=== PATIENT | female | born 1945 | race Caucasian/White ===

== ENCOUNTER 2017-02-24 15:44 | Emergency (ER) | payer MEDICARE, BC ==
[2017-02-24 16:20] LABS: #Basophils 0.1 thou/uL (0.0-0.2); #Eosinphils 0.1 thou/uL (0.0-0.7); #Lymphocytes 1.9 thou/uL (1.20-3.40); #Monocytes 0.4 thou/uL (0.11-0.59); #Neutrophils 3.7 thou/uL (1.40-6.50); %Basophils 1.1 % (0.0-1.0); %Eosinophils 1.5 % (0.0-10.0); %Monocytes 6.5 % (0.0-10.0); %Neutrophils 59.9 % (42.0-75.0); Hemoglobin 11.8 g/dL (12.0-16.0); Mean Corpuscular HGB CONC 31.3 g/dL (32.0-36.0); Mean Corpuscular Hemoglobin 31.5 pg (27.0-31.0); Mean Platelet Volume 8.7 fL (7.4-10.4); Platelet Count 173 thou/uL (130-400); Red Blood Cell (RBC) Count 3.75 mill/uL (4.20-5.40); White Blood Cell (WBC) Count 6.2 thou/uL (4.8-10.8)
[2017-02-24 16:26] LABS: INR-International Normal Ratio 0.9; PTT 23.2 SEC (22.9-36.1); Prothrombin Time 12.4 SEC (12.0-14.7)
[2017-02-24 16:37] LABS: ALT (SGPT) 35 U/L (0-55); AST (SGOT) 37 U/L (5-34); Albumin 3.7 g/dL (3.4-4.8); Alkaline Phosphatase 105 U/L (40-150); Anion Gap 13 mmol/L (10-20); BUN (Urea Nitrogen) 14 mg/dL (9.8-20.1); Bilirubin, Total 0.3 mg/dL (0.2-1.2); Calc. Creatinine Clearance 0 mL/min (70-130); Calcium 8.5 mg/dL (7.8-10.44); Carbon Dioxide 26 mmol/L (23-31); Chloride 107 mmol/L (98-107); Estimated GFR-MDRD 62; Glucose 97 mg/dL (83-110); Potassium 4.3 mmol/L (3.5-5.1); Protein, Total 6.7 g/dL (5.8-8.1); Sodium 142 mmol/L (136-145)
[2017-02-24 16:39] LABS: CKMB 1.5 ng/mL (0-6.6); Troponin I Less than 0.010 ng/mL (< 0.028)
--- NOTE | 2017-02-24 22:26 | RAD ---
LEFT RIBS WITH PA CHEST 02/24/17 The chest film shows a normal sized heart and clear lungs. No infiltrate or effusion was seen. There is no sign of pneumothorax. The mediastinum was normal in appearance. Rib films were done. One of the views suggests there may be a hairline fracture of the left 7th rib anterolaterally. All other views were unremarkable. IMPRESSION: Suspicious for hairline fracture of the left 7th rib. POS: HOME
== END 2017-02-24 18:32 | disposition home or self-care (01) ==
LOC: BURERS 15:44
DX: R07.82 Intercostal pain (principal); E03.9 Hypothyroidism, unspecified; K57.90 Diverticulosis of intestine, part unspecified, without perforation or abscess without bleeding; F41.9 Anxiety disorder, unspecified; F32.9 Major depressive disorder, single episode, unspecified; F43.10 Post-traumatic stress disorder, unspecified
CPT/HCPCS: 80053; 82553; 83880; 84484; 85025; 85610; 85730; 93005; 94760

== ENCOUNTER 2017-05-09 10:36 | Outpatient (CLI) | payer MEDICARE, BC ==
[2017-05-09 12:50] LABS: ALT (SGPT) 33 U/L (8-55); AST (SGOT) 33 U/L (5-34); Albumin 3.6 g/dL (3.4-4.8); Alkaline Phosphatase 87 U/L (40-150); Anion Gap 15 mmol/L (10-20); BUN (Urea Nitrogen) 10 mg/dL (9.8-20.1); Bilirubin, Total 0.5 mg/dL (0.2-1.2); Calc. Creatinine Clearance 0 mL/min (70-130); Calcium 8.8 mg/dL (7.8-10.44); Carbon Dioxide 23 mmol/L (23-31); Chloride 104 mmol/L (98-107); Estimated GFR-MDRD 73; Glucose 89 mg/dL (83-110); Lipase 72 U/L (8-78); Potassium 3.8 mmol/L (3.5-5.1); Protein, Total 6.6 g/dL (6.0-8.3); Sodium 138 mmol/L (136-145)
[2017-05-09 12:51] LABS: #Basophils 0.1 thou/uL (0.0-0.2); #Eosinphils 0.1 thou/uL (0.0-0.7); #Lymphocytes 1.4 thou/uL (1.20-3.40); #Monocytes 0.6 thou/uL (0.11-0.59); #Neutrophils 6.9 thou/uL (1.40-6.50); %Basophils 0.6 % (0.0-1.0); %Eosinophils 0.6 % (0.0-10.0); %Lymphocytes 15.4 % (21.0-51.0); %Monocytes 6.1 % (0.0-10.0); %Neutrophils 77.2 % (42.0-75.0); Hemoglobin 11.9 g/dL (12.0-16.0); Mean Corpuscular Hemoglobin 30.7 pg (27.0-31.0); Mean Corpuscular Volume 95.9 fl (81.0-99.0); Mean Platelet Volume 8.6 fL (7.4-10.4); Platelet Count 196 thou/uL (130-400); RBC Distribution Width 12.1 % (11.5-14.5); Red Blood Cell (RBC) Count 3.88 mill/uL (4.20-5.40); White Blood Cell (WBC) Count 8.9 thou/uL (4.8-10.8)
== END 2017-05-09 10:37 | disposition home or self-care (01) ==
LOC: HPCALD 10:36
PROVIDERS: ATTEND Family Medicine
DX: R10.32 Left lower quadrant pain (principal)
CPT/HCPCS: 36415; 80053; 83690; 85025

== ENCOUNTER 2017-05-20 15:15 | Outpatient (CLI) | payer MEDICARE, BC ==
[2017-05-20 15:44] LABS: #Basophils 0.1 thou/uL (0.0-0.2); #Eosinphils 0.1 thou/uL (0.0-0.7); #Lymphocytes 1.6 thou/uL (1.20-3.40); #Monocytes 0.4 thou/uL (0.11-0.59); #Neutrophils 4.3 thou/uL (1.40-6.50); %Basophils 1.2 % (0.0-1.0); %Eosinophils 1.2 % (0.0-10.0); %Lymphocytes 24.6 % (21.0-51.0); %Monocytes 5.5 % (0.0-10.0); %Neutrophils 67.5 % (42.0-75.0); Hemoglobin 12.3 g/dL (12.0-16.0); Mean Corpuscular HGB CONC 31.7 g/dL (32.0-36.0); Mean Corpuscular Hemoglobin 30.6 pg (27.0-31.0); Mean Corpuscular Volume 96.6 fl (81.0-99.0); Mean Platelet Volume 9.4 fL (7.4-10.4); Platelet Count 287 thou/uL (130-400); RBC Distribution Width 12.6 % (11.5-14.5); White Blood Cell (WBC) Count 6.4 thou/uL (4.8-10.8)
[2017-05-20 15:55] LABS: ALT (SGPT) 27 U/L (8-55); AST (SGOT) 38 U/L (5-34); Albumin 3.5 g/dL (3.4-4.8); Alkaline Phosphatase 69 U/L (40-150); Anion Gap 10 mmol/L (10-20); BUN (Urea Nitrogen) 14 mg/dL (9.8-20.1); Bilirubin, Total 0.2 mg/dL (0.2-1.2); Calc. Creatinine Clearance 0 mL/min (70-130); Calcium 8.7 mg/dL (7.8-10.44); Carbon Dioxide 27 mmol/L (23-31); Chloride 109 mmol/L (98-107); Estimated GFR-MDRD 63; Globulin 3.1 g/dL (2.4-3.5); Glucose 117 mg/dL (83-110); Protein, Total 6.6 g/dL (6.0-8.3); Sodium 142 mmol/L (136-145)
[2017-05-20 16:20] LABS: Free T4 (Free Thyroxine) 1.02 ng/dL (0.70-1.48); Thyroid Stimulating Hormone 0.9629 uIU/mL (0.35-4.94)
[2017-05-20 17:24] LABS: Reticulocyte Count 0.8 % (0.5-1.5)
[2017-05-20 18:44] LABS: Vitamin D, 25 Hydroxy 47.3 ng/ml (> 30.0)
[2017-05-21 16:20] LABS: Iron 38 ug/dL (50-170); Iron Binding Capacity, Total 355 mcg/dL (265-497)
[2017-05-21 16:22] LABS: Ferritin 145.62 ng/mL (10-291)
== END 2017-05-20 15:16 | disposition home or self-care (01) ==
LOC: HPCALD 15:15
PROVIDERS: ATTEND Family Medicine
DX: E03.9 Hypothyroidism, unspecified (principal); D64.9 Anemia, unspecified; E53.8 Deficiency of other specified B group vitamins; E55.9 Vitamin D deficiency, unspecified; R53.83 Other fatigue
CPT/HCPCS: 36415; 80053; 82306; 82607; 82728; 83540; 83550; 84439; 84443; 84481; 85025; 85046

== ENCOUNTER 2017-06-28 09:26 | Outpatient (CLI) | payer MEDICARE, BC | END 2017-06-28 09:27 | disposition home or self-care (01) | LOC: HPCALD 09:26 | PROVIDERS: ATTEND Family Medicine | DX: K91.2 Postsurgical malabsorption, not elsewhere classified (principal); I95.9 Hypotension, unspecified | CPT/HCPCS: 36415; 82024; 82533; 83525; 84244; 84681 ==

== ENCOUNTER 2018-06-14 08:51 | Outpatient (CLI) | payer MEDICARE, BC ==
[2018-06-14] MEDS ORDERED: Iopamidol 370 76% 100 ML VIAL ONE (09:00)
--- NOTE | 2018-06-14 15:33 | CT ---
CTA HEAD WITH CONTRAST CTA MCGRATH OF RODRIGUEZ WITH 3D VOLUME RENDERING CTA NECK WITH CONTRAST WITH 3D VOLUME RENDERING: CLINICAL HISTORY: Dizziness in a 72-year-old female. FINDINGS: Noncontrast head CT reveals normal size of the ventricular system without evidence of mass effect, mi dline shift, or acute intracranial hemorrhage. There is ectasia of the aortic arch. Evaluation each vertebral artery reveals no significant stenosi s or occlusion. Basilar artery is patent. Bilateral common carotid arteries are patent as are the b ilateral cervical ICA. Evaluation of false pass of Rodriguez reveals no significant stenosis or occlusion i nvolving the bilateral anterior, middle, and posterior cerebral arteries. Each intracranial ICA is g rossly patent. IMPRESSION: 1. No acute intracranial abnormalities. 2. No significant stenosis or occlusion involving major arterial system of the head and neck. POS: [facility]
== END 2018-06-14 08:52 | disposition home or self-care (01) ==
LOC: BURCT 08:51
PROVIDERS: ATTEND Family Medicine
DX: R42 Dizziness and giddiness (principal)
CPT/HCPCS: 70496; 70498; A4216

== ENCOUNTER 2018-08-08 15:44 | Emergency (ER) | payer MEDICARE, BC ==
[2018-08-08 16:44] LABS: ALT (SGPT) 27 U/L (8-55); AST (SGOT) 21 U/L (5-34); Albumin 3.8 g/dL (3.4-4.8); Alkaline Phosphatase 103 U/L (40-150); Anion Gap 15 mmol/L (10-20); BUN (Urea Nitrogen) 11 mg/dL (9.8-20.1); Bilirubin, Total 0.6 mg/dL (0.2-1.2); Calc. Creatinine Clearance 0 mL/min (70-130); Carbon Dioxide 26 mmol/L (23-31); Chloride 103 mmol/L (98-107); Estimated GFR-MDRD 82; Globulin 2.9 g/dL (2.4-3.5); Glucose 92 mg/dL (83-110); Protein, Total 6.7 g/dL (6.0-8.3); Sodium 140 mmol/L (136-145)
[2018-08-08 16:46] LABS: CKMB 1.1 ng/mL (0-6.6); Troponin I Less than 0.010 ng/mL (< 0.028)
== END 2018-08-08 17:10 | disposition home or self-care (01) ==
LOC: BURERS 15:44
DX: I10 Essential (primary) hypertension (principal); E03.9 Hypothyroidism, unspecified; F32.9 Major depressive disorder, single episode, unspecified; F41.9 Anxiety disorder, unspecified; F43.10 Post-traumatic stress disorder, unspecified; Z79.899 Other long term (current) drug therapy
CPT/HCPCS: 80053; 82553; 84484; 93005

== ENCOUNTER 2018-08-16 08:56 | Outpatient (CLI) | payer MEDICARE, BC ==
[2018-08-16] MEDS ORDERED: Iopamidol 370 76% 100 ML VIAL ONE (09:00)
--- NOTE | 2018-08-16 20:58 | CT ---
CT ABDOMEN AND PELVIS WITH AND WITHOUT CONTRAST AND ADDITIONAL REGIONAL RECONSTRUCTIONS 08/16/[address] of the abdomen and pelvis was performed. We were asked to take a look at various sections o f the abdomen and also to evaluate the adrenal glands in particular. Thus an adrenal protocol was use d for portions of the study with a noncontrast scan followed by arterial and venous phases. Delayed i mages were also obtained. The arterial phase misses the contrast and I see no contrast in any structu re. The venous and delayed phases are adequate. Coronal and sagittal reconstructions were subsequentl y done after the exam through various areas. This study was compared with the prior CT scan dated 09/05 and one of 04/23/15. The lung bases are clear except for some dependent atelectasis and perhaps a little scarring. The elsa er and spleen are unremarkable in appearance. Again noted is a rounded cystic structure attached to t he tail of the pancreas. It measures 2.4 cm today which is no different than the prior two scans, marisel s it remains stable. While there is a slightly bulbous 8 to 9 mm area in the left adrenal gland, I ca nnot confirm a mass here and certainly there is no significant change on the various contrast phases to give current concern. A 1.8 cm cyst is seen in the upper pole of the left kidney in addition to a few smaller cysts. This is stable over time. There is a 1.2 cm low density area in the mid right kid neeta that is most likely a cyst as well. It remains stable in size. It was not seen on a prior ultraso und, while the other cyst was. The lack of tire changer time is encouraging. The aorta shows no aneury sm or dissection. Regarding the adrenal glands, one could not see any definite mass. The various contrast phases showed no clear abnormality in this region. There appears to have been prior surgery involving the stomach and a hiatal hernia is present. The cheryl wel is nondistended except for a few fluid filled loops of proximal small bowel that were nonspecific in appearance. No inflammatory change was seen around bowel. No inflammatory changes were seen aroun d the pancreas. CT of the pelvis showed no pelvic masses, fluid collections, or inflammatory changes. Extensive degen erative changes are present throughout the patient's spine. IMPRESSION: 1. 2.4 cm cystic area attached to the tail of the pancreas, stable since the 2014 study. 2. 1.8 cm left renal cyst, stable. Tinier cysts are seen elsewhere in both kidneys. There is a p robable cyst of the right kidney that measures 1.2 cm in size and has not changed since the prior sca n. My only hesitation is that it was not proven by ultrasound previously. 3. Nonspecific bowel gas pattern with a few minimally prominent loops of fluid filled proximal s mall bowel. 4. Small hiatal hernia. POS: HOME
== END 2018-08-16 08:57 | disposition home or self-care (01) ==
LOC: BURCT 08:56
PROVIDERS: ATTEND Family Medicine
DX: K86.1 Other chronic pancreatitis (principal); K86.2 Cyst of pancreas; N28.1 Cyst of kidney, acquired; K44.9 Diaphragmatic hernia without obstruction or gangrene
CPT/HCPCS: 74178; A4216

== ENCOUNTER 2022-09-15 14:55 | Emergency (ER) | payer MEDICARE, BC ==
[2022-09-15 15:54] LABS: #Basophils 0.1 thou/uL (0.0-0.2); #Eosinphils 0.1 thou/uL (0.0-0.7); #Lymphocytes 2.3 thou/uL (1.20-3.40); #Monocytes 0.6 thou/uL (0.11-0.59); #Neutrophils 5.3 thou/uL (1.40-6.50); %Basophils 0.9 % (0.0-1.0); %Eosinophils 1.4 % (0.0-10.0); %Lymphocytes 27.1 % (21.0-51.0); %Monocytes 7.6 % (0.0-10.0); Hemoglobin 10.3 g/dL (12.0-16.0); Mean Corpuscular HGB CONC 30.7 g/dL (32.0-36.0); Mean Corpuscular Hemoglobin 29.3 pg (27.0-31.0); Mean Corpuscular Volume 95.6 fl (78.0-98.0); Mean Platelet Volume 8.7 fL (7.4-10.4); Platelet Count 346 thou/uL (130-400); RBC Distribution Width 14.4 % (11.5-14.5); White Blood Cell (WBC) Count 8.4 thou/uL (4.8-10.8)
[2022-09-15 16:10] LABS: ALT (SGPT) 12 U/L (8-55); AST (SGOT) 16 U/L (5-34); Albumin 3.4 g/dL (3.4-4.8); Alkaline Phosphatase 59 U/L (40-110); Anion Gap 10 mmol/L (10-20); BUN (Urea Nitrogen) 9 mg/dL (9.8-20.1); Bilirubin, Total 0.2 mg/dL (0.2-1.2); Calc. Creatinine Clearance 0 mL/min (70-130); Calcium 7.7 mg/dL (7.8-10.44); Carbon Dioxide 26 mmol/L (23-31); Chloride 108 mmol/L (98-107); Estimated GFR 76; Globulin 2.8 g/dL (2.4-3.5); Glucose 82 mg/dL (83-110); Protein, Total 6.2 g/dL (5.8-8.1); Sodium 140 mmol/L (136-145)
[2022-09-15 16:53] LABS: Bilirubin Negative (Negative); Blood, Urine Negative (Negative); Clarity Clear (Clear); Glucose, Urine (Dipstick) Negative (Negative); Ketone, Urine Negative (Negative); Leukocyte Negative (Negative); Nitrite Negative (Negative); Protein, Urine (Dipstick) Negative (Neg-Trace); Urobilinogen 0.2 mg/dL (Less than 2); pH, Urine 5.5 (5.0-9.0)
== END 2022-09-15 17:35 | disposition home or self-care (01) ==
LOC: BURERS 14:55
DX: E11.649 Type 2 diabetes mellitus with hypoglycemia without coma (principal); I10 Essential (primary) hypertension; E03.9 Hypothyroidism, unspecified; Z79.899 Other long term (current) drug therapy
CPT/HCPCS: 36415; 36416; 80053; 81003; 83605; 84484; 85025; 93005

== ENCOUNTER 2024-06-02 08:59 | Emergency (ER) | payer OTHER, MEDICARE, BC ==
[2024-06-02] MEDS ORDERED: Ondansetron PF 4 MG/2 ML Vial ONE (09:17)
[2024-06-02] MEDS ORDERED: Morphine 4 MG/ML VIAL ONE ×2 (09:17→10:20)
[2024-06-02 09:35] LABS: #Basophils 0.1 thou/uL (0.0-0.2); #Eosinphils 0.3 thou/uL (0.0-0.7); #Lymphocytes 2.6 thou/uL (1.20-3.40); #Monocytes 0.5 thou/uL (0.11-0.59); #Neutrophils 3.8 thou/uL (1.40-6.50); %Basophils 1.7 % (0.0-1.0); %Eosinophils 3.8 % (0.0-10.0); %Lymphocytes 35.5 % (21.0-51.0); %Monocytes 7.2 % (0.0-10.0); %Neutrophils 51.9 % (42.0-75.0); Hematocrit 39.7 % (36.0-47.0); Hemoglobin 11.9 g/dL (12.0-16.0); Mean Corpuscular Volume 93.6 fl (78.0-98.0); Mean Platelet Volume 7.8 fL (7.4-10.4); Platelet Count 268 10x3/uL (130-400); RBC Distribution Width 13.8 % (11.5-14.5); Red Blood Cell (RBC) Count 4.24 mill/uL (4.20-5.40); White Blood Cell (WBC) Count 7.4 10x3/uL (4.8-10.8)
[2024-06-02 09:36] LABS: MDiff Complete? YES; Manual Diff?? NO
[2024-06-02 09:41] LABS: ALT (SGPT) 69 U/L (8-55); AST (SGOT) 66 U/L (5-34); Albumin 3.3 g/dL (3.4-4.8); Alkaline Phosphatase 76 U/L (40-110); Anion Gap 14 mmol/L (10-20); BUN (Urea Nitrogen) 17 mg/dL (9.8-20.1); Bilirubin, Total 0.3 mg/dL (0.2-1.2); Calc. Creatinine Clearance 0 mL/min (70-130); Calcium 8.2 mg/dL (7.8-10.44); Carbon Dioxide 21 mmol/L (23-31); Chloride 108 mmol/L (98-107); Estimated GFR 56; Glucose 99 mg/dL (83-110); Magnesium 2.1 mg/dL (1.6-2.6); Protein, Total 6.3 g/dL (5.8-8.1); Sodium 139 mmol/L (136-145)
[2024-06-02 09:43] LABS: Troponin I Less than 0.010 ng/mL (< 0.028)
[2024-06-02] MEDS ORDERED: Iopamidol 370 76% 100 ML VIAL ONE (13:05)
== END 2024-06-02 11:18 | disposition home or self-care (01) ==
LOC: BURERS 08:59
DX: S51.812A Laceration without foreign body of left forearm, initial encounter (principal); S00.33XA Contusion of nose, initial encounter; M62.838 Other muscle spasm; E03.9 Hypothyroidism, unspecified; F41.9 Anxiety disorder, unspecified; M19.90 Unspecified osteoarthritis, unspecified site; V89.2XXA Person injured in unspecified motor-vehicle accident, traffic, initial encounter; W22.10XA Striking against or struck by unspecified automobile airbag, initial encounter; Z79.899 Other long term (current) drug therapy
CPT/HCPCS: 36415; 70450; 71260; 72125; 74177; 80053; 83735; 84484; 85025; 93005; 96374; 96375; 96376; J2270; J2405; Q9967

== ENCOUNTER 2025-10-23 18:36 | Emergency (ER) | payer MEDICARE, BC ==
[2025-10-23 19:31] LABS: Hematocrit 37.2 % (36.0-47.0); Hemoglobin 11.1 g/dL (12.0-16.0); INR-International Normal Ratio 1.0; Mean Corpuscular Hemoglobin 27.3 pg (27.0-31.0); Mean Corpuscular Volume 91.2 fl (78.0-98.0); Platelet Count 333 10x3/uL (130-400); Prothrombin Time 13.5 sec (12.0-14.7); Red Blood Cell (RBC) Count 4.08 mill/uL (4.20-5.40); White Blood Cell (WBC) Count 9.5 10x3/uL (4.8-10.8)
[2025-10-23 19:37] LABS: ALT (SGPT) 24 U/L (Less than 34); AST (SGOT) 31 U/L (11-34); Albumin 3.4 g/dL (3.1-4.5); Alkaline Phosphatase 68 U/L (40-110); Anion Gap 15 mmol/L (10-20); BUN (Urea Nitrogen) 11 mg/dL (9.8-20.1); Bilirubin, Total 0.3 mg/dL (0.3-1.2); Calc. Creatinine Clearance 0 mL/min (70-130); Calcium 8.8 mg/dL (7.8-10.44); Carbon Dioxide 25 mmol/L (23-31); Chloride 104 mmol/L (98-107); Globulin 2.8 g/dL (2.4-3.5); Glucose 89 mg/dL (83-110); Potassium 3.9 mmol/L (3.5-5.1); Sodium 140 mmol/L (136-145)
[2025-10-23 19:39] LABS: MDiff Complete? YES; Platelet Adequacy Comment Appears Adequate
[2025-10-23 19:40] LABS: Troponin I 0.024 ng/mL (< 0.028)
[2025-10-23 19:58] LABS: Glucose, Urine (Dipstick) Negative (Negative); Leukocyte Small (Negative); Protein, Urine (Dipstick) Trace mg/dL (Neg-Trace); Specific Gravity, Urine 1.015 (1.005-1.030)
[2025-10-23 20:05] LABS: Bacteria/HPF 1+ HPF (None Seen); Yeast-Budding 1+ HPF (None Seen)
[2025-10-23 20:07] LABS: CAUTI Indications for Culture Alt mental st,lethar; Mucous/LPF Few LPF (<2+); RBC/HPF 0-3 HPF (0-3)
[2025-10-23 20:10] LABS: Urine Culture Reflex Yes Yes
[2025-10-23] MEDS ORDERED: Sulfameth/Trimethoprim DS 800-160mg TAB ONE (20:38)
== END 2025-10-23 21:19 | disposition home or self-care (01) ==
LOC: BURERS 18:36
DX: S06.0XAA Concussion with loss of consciousness status unknown, initial encounter (principal); N39.0 Urinary tract infection, site not specified; R29.700 NIHSS score 0; E03.9 Hypothyroidism, unspecified; I10 Essential (primary) hypertension; W19.XXXA Unspecified fall, initial encounter
CPT/HCPCS: 70450; 72125; 80053; 81001; 83880; 84484; 85025; 85610; 87086; 93005

== ENCOUNTER 2025-11-15 10:19 | Emergency (ER) | payer MEDICARE, BC ==
[2025-11-15 10:52] LABS: Glucose, Urine (Dipstick) Negative (Negative); Leukocyte Trace (Negative); Protein, Urine (Dipstick) Negative (Neg-Trace); Specific Gravity, Urine 1.015 (1.005-1.030)
[2025-11-15] MEDS ORDERED: Ondansetron PF 4 MG/2 ML Vial ONE (11:01)
[2025-11-15] MEDS ORDERED: Ketorolac Tromethamine 30 MG (1 mL) VIAL ONE (11:01)
[2025-11-15 11:06] LABS: #Basophils 0.1 thou/uL (0.0-0.2); #Eosinophils 0.1 thou/uL (0.0-0.7); #Lymphocytes 1.9 thou/uL (1.20-3.40); #Monocytes 0.5 thou/uL (0.11-0.59); #Neutrophils 6.4 thou/uL (1.40-6.50); %Basophils 0.9 % (0.0-1.0); %Eosinophils 1.2 % (0.0-10.0); %Lymphocytes 20.8 % (21.0-51.0); %Monocytes 5.8 % (0.0-10.0); %Neutrophils 71.4 % (42.0-75.0); Hematocrit 36.7 % (36.0-47.0); Hemoglobin 11.1 g/dL (12.0-16.0); Mean Corpuscular Hemoglobin 28.6 pg (27.0-31.0); Mean Corpuscular Volume 94.8 fl (78.0-98.0); Platelet Count 327 10x3/uL (130-400); Red Blood Cell (RBC) Count 3.87 mill/uL (4.20-5.40); White Blood Cell (WBC) Count 8.9 10x3/uL (4.8-10.8)
[2025-11-15 11:10] LABS: Bacteria/HPF Rare-Few HPF (None Seen); CAUTI Indications for Culture Alt mental st,lethar; RBC/HPF None Seen HPF (0-3); Urine Culture Reflex No No; WBC/HPF 0-3 HPF (0-3)
[2025-11-15 11:27] LABS: ALT (SGPT) 20 U/L (Less than 34); AST (SGOT) 22 U/L (11-34); Albumin 3.5 g/dL (3.1-4.5); Alkaline Phosphatase 62 U/L (40-110); Anion Gap 14 mmol/L (10-20); BUN (Urea Nitrogen) 10 mg/dL (9.8-20.1); Bilirubin, Total 0.4 mg/dL (0.3-1.2); Calc. Creatinine Clearance 0 mL/min (70-130); Calcium 8.2 mg/dL (7.8-10.44); Carbon Dioxide 24 mmol/L (23-31); Chloride 104 mmol/L (98-107); Globulin 2.6 g/dL (2.4-3.5); Glucose 94 mg/dL (83-110); Lipase 90 U/L (8-78); Potassium 3.3 mmol/L (3.5-5.1); Sodium 139 mmol/L (136-145)
[2025-11-15] MEDS ORDERED: Iopamidol 370 76% 100 ML VIAL ONE (13:05)
[2025-11-15] MEDS ORDERED: cloNIDine 0.1 MG TAB ONE (14:50)
== END 2025-11-15 17:30 | disposition short-term general hospital (02) ==
LOC: BURERS 10:19
DX: K56.1 Intussusception (principal); R41.0 Disorientation, unspecified; R29.700 NIHSS score 0; I10 Essential (primary) hypertension; E03.9 Hypothyroidism, unspecified; Z79.890 Hormone replacement therapy; Z79.899 Other long term (current) drug therapy; Z79.82 Long term (current) use of aspirin
CPT/HCPCS: 70450; 71046; 74177; 80053; 81001; 83690; 85025; 96361; 96374; 96375; 99285; J1885; J2405; 82274; Q9967